=== PATIENT | male | born 1940 | race Caucasian/White ===

== ENCOUNTER → 2017-04-07 | Day surgery (SDC) | payer OTHER ==
[~2017-04-07] VITALS: Ht 175.3 cm; Wt 68.0 kg
[~2017-04-07] MED LIST: 0.9% Sodium Chloride 1,000 ML IV PRN; Sodium Chloride LOK Flush 10 mL Syringe IV PRN; fentaNYL-PF 50 mCg/mL 2 mL Inj IVPUSH PRN
[2017-04-07 09:17] VITALS: BP 113/76; PULSE 85; RESP 18; O2SAT 96
[2017-04-07 11:00] VITALS: BP 109/76; PULSE 72; RESP 16; O2SAT 97
[2017-04-07 11:13] VITALS: BP 121/78; PULSE 71; RESP 14; O2SAT 94
--- NOTE | 2017-04-07 11:59 | ENDO ---
[address] [address] ENDOSCOPY PROCEDURE PATIENT: DOT CHAUDHRY : 1940 MR#: [id number] ADMIT: 04/07/2017 JOB ID: [id number] DATE: 04/07/2017 PROCEDURE: Esophagogastroduodenoscopy. INDICATION: Weight loss. ASA CLASSIFICATION: 3. MALLAMPATI SCORE: 2. MEDICATIONS: Versed 5 mg, fentanyl 150 mcg. INSTRUMENT USED: GIF-H180-J. PROCEDURE DETAILS: After informed consent was obtained, the patient was brought into the GI suite, where he was placed on oxygen via nasal cannula and monitored with continuous pulse oximeter, telemetry, and blood pressure monitoring. A time-out was performed. Then, he was placed in a left lateral decubitus position and medications were administered for sedation. A bite block was placed. The standard EGD scope was inserted through the bite block and advanced under direct visualization to the second portion of the duodenum without difficulty. FINDINGS: 1. Normal-appearing duodenal bulb, first and second portion. Multiple random biopsies were obtained. 2. Normal-appearing pylorus. In the antrum and body and the fundus of the stomach, the mucosa had erythematous appearance in a patchy, which appeared in a scattered pattern. Multiple random biopsies were obtained. 3. Retroflexed views in the gastric body was otherwise unremarkable. 4. The GE junction was at approximately 40 cm. Arising from the GE junction was several tongues of salmon-colored mucosa to 39 cm. Multiple random biopsies were obtained. At 36 cm, there was an island of salmon-colored mucosa which was biopsied. The remainder of the esophagus otherwise unremarkable. IMPRESSION: 1. Gastritis. 2. Irregular gastroesophageal junction. RECOMMENDATIONS: 1. Await biopsy results. 2. Proceed to colonoscopy. COMPLICATIONS: None. BLOOD LOSS: Less than 5 mL.
--- NOTE | 2017-04-07 12:04 | ENDO ---
[address] [address] ENDOSCOPY PROCEDURE PATIENT: DOT CHAUDHRY : 1940 MR#: [id number] ADMIT: 04/07/2017 JOB ID: [id number] DATE: 04/07/2017 PROCEDURE PERFORMED: Colonoscopy. INDICATION: Positive FIT test, and weight loss. Please see above for ASA classification, Mallampati score, and medications. INSTRUMENT USED: PCF-H180-AL PREPARATION QUALITY: Poor. PROCEDURE DETAILS: After completion of the EGD exam, the patient was turned and a digital rectal exam was performed which was unremarkable. The colonoscope was then inserted into the rectum and advanced under direct visualization to the cecum, which was identified by the presence of the ileocecal valve and appendiceal orifice. Once the cecum was reached, the colonoscope was then withdrawn back into the rectum as the mucosa and lumen were examined. In the rectum, retroflexion was performed. Following retroflexion, remaining air in the rectum was suctioned, and procedure was completed. FINDINGS: 1. There was scattered semi-solid stool that we were unable to suction despite copious amounts of irrigation and suctioning. Therefore, smaller polyps may have been missed. However, no large polyps were seen. 2. In the cecum, there was a diminutive polyp that was removed with cold biopsy forceps. 3. In the ascending colon, there was an approximately 1 cm polyp overlying a fold. The polyp was removed piecemeal using a hot snare. 4. Just adjacent to this was a diminutive polyp which was removed with cold biopsy forceps. 5. Radha ink was injected adjacent to the larger polyp to identify future identification. 6. In the sigmoid colon, there was an approximately 1 cm sessile polyp that was removed with a hot snare. Following polypectomy, there was bleeding at the site which was treated with the application of one hemoclip. 7. Scattered diverticula were seen throughout the left side of the colon. 8. Retroflexed views in the rectum revealed internal hemorrhoids. IMPRESSION: 1. Cecal polyp. 2. Two ascending colon polyps. 3. Sigmoid polyp. 4. Left-sided diverticulosis. 5. Internal hemorrhoids. RECOMMENDATIONS: 1. Avoid NSAIDs and anticoagulants for 72 hours. 2. Repeat colonoscopy in six months. 3. Follow up in GI clinic. COMPLICATIONS: None. ESTIMATED BLOOD LOSS: Less than 5 mL.
--- NOTE | 2017-04-09 12:12 | PATH ---
SURGICAL PATHOLOGY Attending Physician:Baltazar Blackman CASE STATUS: Signed Out PATIENT NAME: DOT CHAUDHRY PID: [id number] : 1940 DATE COLLECTED:04/07/2017 17:31 SPECIMEN: 1: Duodenum, Biopsy 2: Gastric, Biopsy 3: Esophagus, Biopsy 4: Esophagus, Biopsy 5: Colon, Polyp 6: Colon, Polyp 7: Colon, Polyp 8: Colon, Polyp CLINICAL HISTORY: 1). DUODENAL BIOPSY 2). RANDOM GASTRIC BIOPSY (RULE OUT H.PYLORI) 3). DISTAL ESOPHAGUS BIOPSY 4). DISTAL ESOPHAGUS AT 36 CM BIOPSY 5). CECAL POLYP X1 6). ASCENDING JAR #1 POLYP X1 7). ASCENDING JAR #2 POLYP X1 8). SIGMOID POLYP X1 FINAL DIAGNOSIS: 1.DUODENUM, BIOPSY: NORMAL SMALL BOWEL MUCOSA. Negative for inflammation, histologic evidence of celiac disease, dysplasia, and malignancy. 2.STOMACH, RANDOM BIOPSY: ANTRAL MUCOSA WITH CHRONIC ACTIVE GASRITIS. INTESTINAL METAPLASIA IS PRESENT ON ONE OF THE THREE BIOPSY FRAGMENTS. Negative for dysplasia and malignancy. Immunohistochemistry for Helicobacter organisms is pending and will be reported in an addendum. 3.DISTAL ESOPHAGUS, BIOPSY: SQUAMOCOLUMNAR JUNCTIONAL MUCOSA WITH CHRONIC ACTIVE ESOPHAGITIS. Negative for Holguin' s esophagus, dysplasia and malignancy. 4.DISTAL ESOPHAGUS AT 36 CM, BIOPSY: SQUAMOCOLUMNAR JUNCTIONAL MUCOSA WITH CHRONIC ACTIVE ESOPHAGITIS. Negative for Holguin' s esophagus, dysplasia and malignancy. 5.CECAL POLYP, BIOPSY: TUBULAR ADENOMA. 6.ASCENDING POLYP, DESIGNATED JAR #1, BIOPSY: MULTIPLE FRAGMENTS OF TUBULAR ADENOMA. 7.ASCENDING POLYP, DESIGNATED JAR #2, BIOPSY: TUBULAR ADENOMA. 8.SIGMOID POLYP, BIOPSY: TUBULOVILLOUS ADENOMA. Negative for high-grade dysplasia and malignancy. ICD10 K20.9 D12.6 B96.81 GROSS DESCRIPTION: The specimen is received in eight formalin filled containers labeled with the patient's name. 1). The specimen is labeled "duodenal" and consists of 4 tiny portions of tissue which aggregate to 0.3 x 0.3 x 0.2 CM. The specimen is entirely submitted in cassettes 1A. 2). The specimen is labeled "random gastric" and consists of 3 portions of tissue which aggregate to 0.3 x 0.3 x 0.2 CM. The specimen is entirely submitted in cassette 2A. 3). The specimen is labeled "distal esophagus" and consists of a 0.1 x 0.1 x 0.1 CM portion of tissue which is entirely submitted in cassette 3A. 4). The specimen is labeled "distal esophagus at 36 CM" and consists of a less than 0.1 CM portion of tissue which is entirely submitted in cassette 4A. 5). The specimen is labeled "cecal polyp" and consists of a 0.1 x 0.1 x 0.1 CM portion of tissue which is entirely submitted in cassette 5A. 6). The specimen is labeled "ascending polyp x1 jar 1" and consists of multiple portions of tissue which aggregate to 1.0 x 0.8 x 0.3 CM. The specimen is entirely submitted in cassette 6A. 7). The specimen is labeled "ascending polyp jar 2" and consists of 2 extremely tiny portions of issue which aggregate to 0.3 x 0.3 x 0.2 CM. The specimen is entirely submitted in cassette 7A. 8). The specimen is labeled "sigmoid polyp" and consists of a 0.5 x 0.5 x 0.6 CM portion of tissue which is bisected and entirely submitted in cassette 8A. 04/07/2017DC MICRO DESCRIPTION: See diagnosis. ICD-9 CODES: CPT CODES: 1: 94234 2: 16707, 13477 3: 59239 4: 98169 5: 31817 6: 66361 7: 50192 8: 00082 PROCEDURE/ADDENDA: Addendum SPI Addendum Diagnosis 2. Random Gastric, Biopsy: Negative for Helicobacter organisms by immunohistochemistry. Addendum Comment The purpose of the addendum is to report the results of the immunohistochemical stain for Helicobacter pylori performed on the random gastric biopsy. The immunohistochemical stain is negative for Helicobacter organisms whereas the positive control reacted appropriately. Electronically Signed Out Humphrey Schreiber MD, PhD Electronically Signed Out Humphrey Schreiber MD, PhD [facility] [address] [place] [address], [place] [address] Technical component performed at [facility], [facility] [address], [place], [address]
== END | disposition home or self-care (01) ==
LOC: END 00:29
PROVIDERS: ATTEND Internal Medicine Gastroenterology
DX: Z12.11 Encounter for screening for malignant neoplasm of colon (principal); D12.0 Benign neoplasm of cecum; D12.2 Benign neoplasm of ascending colon; D12.5 Benign neoplasm of sigmoid colon; K57.30 Diverticulosis of large intestine without perforation or abscess without bleeding; K64.8 Other hemorrhoids; K20.8 Other esophagitis; K29.50 Unspecified chronic gastritis without bleeding; R19.5 Other fecal abnormalities; R63.4 Abnormal weight loss; F17.210 Nicotine dependence, cigarettes, uncomplicated; J44.9 Chronic obstructive pulmonary disease, unspecified; Z68.22 Body mass index [BMI] 22.0-22.9, adult
CPT/HCPCS: 43239; 45380; 45381; 45385; 99153; G0500; J2250; J3010; J7030